=== PATIENT | female | born 1980 | race Caucasian/White ===

== ENCOUNTER 2019-10-12 01:58 | Emergency (ER) | payer OTHER ==
[~2019-10-12] VITALS: Ht 165.1 cm; Wt 101.6 kg
[~2019-10-12 01:58] MED LIST: AMOXICILLIN500 MG ORAL; VENTOLIN HFA18 GM INH
--- NOTE | 2019-10-12 02:10 | NUR ---
ED Nurse Note: Patient walked into ED c/o cough for the past 30 days, reports coming into the ED due to having an episode of non stop coughing for 1 hour. SpO2 at 98% RAMurtaza BECERRA, patient family at bedside. Will continue to monitor.
[2019-10-12 02:11] VITALS: BP 123/78
--- NOTE | 2019-10-12 02:24 | NUR ---
ED Nurse Note: ERMD at bedside. Family at bedside. Will continue to monitor.
--- NOTE | 2019-10-12 02:36 | Emergency Room Report ---
History of Present Illness General Chief Complaint: Upper Respiratory Illness Source: Patient, Family Member Present Illness HPI Patient 39-year-old female presents after continued nonproductive cough. Patient had recently finished courses of azithromycin as well as amoxicillin. She had multiple episodes of nonproductive coughing. She had recently been undergoing chemotherapy for stage II breast cancer. She reports having some subjective fever. She denies any increased productive cough. Prior history of allergy to Vicodin. Allergies: Coded Allergies: ACETAMINOPHEN (Verified Allergy, Unknown, 11/03/15) HYDROCODONE (Verified Allergy, Unknown, 11/03/15) Patient History Past Medical History: see triage record Last Menstrual Period: n/a Reviewed Nursing Documentation: PMH: Agreed; PSxH: Agreed Nursing Documentation-PMH Hx Asthma: Yes Hx Cancer: Yes - Breast Review of Systems All Other Systems: negative except mentioned in HPI Physical Exam Vital Signs Date Time Temp Pulse Resp B/P (MAP) Pulse Ox O2 Delivery O2 Flow Rate FiO2 10/12/19 02:03 98.4 90 18 123/78 (93) 96 Room Air 10/12/19 02:13 98 General Appearance: alert, GCS 15, obese, Chronically Ill Head: normocephalic, atraumatic ENT: hearing grossly normal, normal voice Neck: full range of motion, supple Respiratory: lungs clear, no respiratory distress, speaking full sentences Cardiovascular #1: normal peripheral pulses, regular rate, rhythm, no edema Gastrointestinal: normal inspection, non tender, soft Musculoskeletal: normal inspection, no calf tenderness Neurologic: alert, motor strength/tone normal, review engineer III-XII nml as tested, oriented x3, normal gait Psychiatric: mood/affect normal Skin: no rash Medical Decision Making Diagnostic Impression: Primary Impression: Respiratory infection, upper ER Course Patient presented for cough and difficulty with breathing. Differential diagnosis include recently to pneumonia, bronchitis, viral respiratory infection among others. Because of complexity of patient's imaging studies were ordered.Patient does not appear to be acutely ill. Patient was given a breathing treatment with marked improvement in cough. Patient had recently been treated with oral antibiotics. Patients cough appears to be viral in nature. Patient was advised to follow up with her oncologist in the next 1-2 days. She is to return if worse or if she developed any fever or other concerns. Last Vital Signs Date Time Temp Pulse Resp B/P (MAP) Pulse Ox O2 Delivery O2 Flow Rate FiO2 10/12/19 02:13 77 18 Room Air 98 10/12/19 02:11 98.4 123/78 96 Status: improved Disposition: HOME, SELF-CARE Condition: Stable Scripts Prednisone* (PREDNISONE*) 20 Mg Tablet 40 MG ORAL DAILY, #10 TAB Prov: Primitivo Gutner MD 10/12/19 Albuterol Sulfate* (ALBUTEROL SULFATE MDI*) 8.5 Gm Hfa.aer.ad 2 PUFF INH Q6H, #1 EA 0 Refills Prov: Primitivo Gunter MD 10/12/19 Primitivo Gunter MD Oct 12, 2019 02:36
[2019-10-12] MEDS ORDERED: Albuterol/Ipratropium 3ml neb HHN ONE (02:45)
--- NOTE | 2019-10-12 02:50 | NUR ---
Note chip in EDM - 10/12/19 at 0315 by [email or web address] ED Nurse Note: RT at bedside. Pt tolerating breathing treatment without any discomfort. NAD, will continue to monitor patient.
--- NOTE | 2019-10-12 02:59 | NUR ---
ED Nurse Note: XR at bedside.
--- NOTE | 2019-10-12 03:03 | NUR ---
ED Nurse Note: Called RT for breathing treatment.
--- NOTE | 2019-10-12 03:05 | NUR ---
ED Nurse Note: RT at bedside. Pt tolerating breathing treatment without any discomfort. NAD, will continue to monitor patient.
--- NOTE | 2019-10-12 03:25 | NUR ---
Note chip in EDM - 10/12/19 at 0335 by [email or web address] ED Nurse Note: Pt complaining of chest tightness. ERMD notified. Per ERMD, give another breathing treatment. RT at bedside.
[2019-10-12] MEDS ORDERED: PREDNISONE20 MG ORAL (03:33)
[2019-10-12] MEDS ORDERED: ALBUTEROL SULF8.5 GM INH (03:33)
--- NOTE | 2019-10-12 03:33 | NUR ---
Note chip in EDM - 10/12/19 at 0335 by [email or web address] ED Nurse Note: Pt tolerated breathing treatment well. Pt resting and calm. Will continue to monitor.
[2019-10-12 03:45] VITALS: BP 122/72
--- NOTE | 2019-10-12 03:45 | NUR ---
ER DISCHARGE NOTE: Patient is cleared to be discharged per ERMD, pt is aox4, on room air, with stable vital signs. pt was given dc and prescription instructions, pt was able to verbalize understanding, pt id band removed without complications. pt is able to ambulate with steady gait. pt took all belongings accompanied by family.
--- NOTE | 2019-10-12 11:00 | Diagnostic Imaging Report ---
Indication: Shortness of breath Technique: XRAY Chest 1v Comparison: None Findings: Limited exam. Heart size and mediastinal contours likely within normal limits for AP technique, low lung volumes and patient rotation. More reliable assessment of the heart and mediastinum can be made with dedicated PA and lateral views as clinically indicated. No definite focal airspace consolidation. No radiographically appreciable pleural effusion or pneumothorax. No evidence to suggest pulmonary edema. There are degenerative changes in the spine. No acute osseous abnormality is appreciated. Impression: Limited exam as above. No definite radiographic evidence of acute cardiopulmonary disease.
== END 2019-10-12 03:45 | disposition home or self-care (01) ==
LOC: EMR 02:30
DX: J06.9 Acute upper respiratory infection, unspecified (principal); E66.9 Obesity, unspecified; C50.919 Malignant neoplasm of unspecified site of unspecified female breast; Z88.6 Allergy status to analgesic agent
CPT/HCPCS: 71045; Z7502; 99284; J7620

== ENCOUNTER 2020-10-10 11:32 | Emergency (ER) | payer OTHER ==
[~2020-10-10] VITALS: Ht 162.6 cm; Wt 107.5 kg
[~2020-10-10 11:32] MED LIST changes: +ALBUTEROL SULF8.5 GM INH; +PREDNISONE20 MG ORAL
--- NOTE | 2020-10-10 11:45 | NUR ---
ED Nurse Note: Patient from home and walked in due to left hand pain and injury started this mornming. Grand daughter opened the door and accidentally slammed it on pt's hand. Pt is AOx4, calm and cooperative to care, VSS, on RA, afebrile on triage. Placed on chair.
[2020-10-10 12:00] VITALS: BP 116/74
--- NOTE | 2020-10-10 13:06 | Emergency Room Report ---
History of Present Illness General Chief Complaint: Upper Extremity Injury Source: Patient Present Illness HPI 40-year-old female presents to the emergency department complaining of localized 8 out of 10 severity left forearm pain x1 day status post getting her arm slammed in a door to the laundry room on accident. She reports swelling and bruising. She denies open wounds or bleeding. Patient is right-hand dominant. Denies numbness tingling or loss of sensation or gross motor movements of the extremities, incontinence of bowel or bladder. Denies CP, Palpitations, LOC, AMS, dizziness, Changes in Vision, weakness or a sudden severe headache. Allergies: Coded Allergies: ACETAMINOPHEN (Verified Allergy, Unknown, 11/03/15) HYDROCODONE (Verified Allergy, Unknown, 11/03/15) COVID-19 Screening Contact w/high risk pt: No Experienced COVID-19 symptoms?: No COVID-19 Testing performed PICTURE BOOKER: No Patient History Past Medical History: see triage record Past Surgical History: none Pertinent Family History: none Now: No Reviewed Nursing Documentation: PMH: Agreed; PSxH: Agreed Nursing Documentation-PMH Past Medical History: No History, Except For Hx Asthma: Yes Hx Cancer: Yes - right Breast Review of Systems All Other Systems: negative except mentioned in HPI Physical Exam Vital Signs Date Time Temp Pulse Resp B/P (MAP) Pulse Ox O2 Delivery O2 Flow Rate FiO2 10/10/20 11:39 98.4 78 16 116/74 (88) 94 Room Air Sp02 EP Interpretation: reviewed, normal General Appearance: no apparent distress, alert, GCS 15, non-toxic Head: normocephalic, atraumatic Eyes: bilateral eye normal inspection, bilateral eye PERRL ENT: hearing grossly normal, normal voice Neck: full range of motion Respiratory: lungs clear, normal breath sounds, speaking full sentences Cardiovascular #1: regular rate, rhythm, normal capillary refill Cardiovascular #2: 2+ radial (R), 2+ radial (L) Musculoskeletal: back normal, normal range of motion, gait/station normal, tender - LEft wrist / forearm , swelling - LEft wrist / forearm , other - No snuff box ttp Neurologic: alert, motor strength/tone normal, oriented x3, sensory intact, responsive, speech normal Psychiatric: judgement/insight normal Skin: Ecchymosis/Bruising - Left forearm - mild Medical Decision Making PA Attestation Dr. Livingston is my supervising Physician whom patient management has been discussed with. Diagnostic Impression: Primary Impression: Contusion of left wrist Qualified Codes: S60.212A - Contusion of left wrist, initial encounter Additional Impression: Contusion of forearm, left Qualified Codes: S50.12XA - Contusion of left forearm, initial encounter ER Course 40-year-old female presents to the emergency department complaining of localized 8 out of 10 severity left forearm pain x1 day status post getting her arm slammed in a door to the laundry room on accident. She reports swelling and bruising. She denies open wounds or bleeding. Patient is right-hand dominant. Denies numbness tingling or loss of sensation or gross motor movements of the extremities, incontinence of bowel or bladder. Denies CP, Palpitations, LOC, AMS, dizziness, Changes in Vision, weakness or a sudden severe headache. Ddx considered but are not limited to Fracture, dislocation, contusion, Sprain/Strain/Spasm, Epidural abscess, Neoplastic mets. Vital signs: are WNL, pt. is afebrile H&PE are most consistent with musculoskeletal injury will perform imaging to r/o fractures/dislocations. ORDERS: - X-ray Left hand and wrist 3 views each - negative for fx, Dislocation, or s ignificant soft tissue injury, per preliminary read in ED, and signed by PARTH Oleary, my supervising physician has reviewed, and agrees with my interpretation. ED INTERVENTIONS: - Motrin 600mg PO -Wrist splint applied by RN. Pt. remains neurovascularly intact. - Left arm Sling applied by RN. Pt. remains neurovascularly intact. DISCHARGE: At this time pt. is stable for d/c to home. Will provide printed patient care instructions, and any necessary prescriptions. Care plan and follow up instructions have been discussed with the patient prior to discharge. Last Vital Signs Date Time Temp Pulse Resp B/P (MAP) Pulse Ox O2 Delivery O2 Flow Rate FiO2 10/10/20 11:39 98.4 78 16 116/74 (88) 94 Room Air Status: improved Disposition: HOME, SELF-CARE Condition: Stable Referrals: [facility],REFERRING (PCP) Beau Castaneda [facility]. [facility] Patient Instructions: Contusion, [id number] Additional Instructions: Take medications as directed. Follow up with a Primary Care Provider in 3-5 days, even if your symptoms have resolved. --Please review list of primary care clinics, if you do not already have a primary care provider Return sooner to ED if new symptoms occur, or current symptoms become worse. - Please note that this Emergency Department Report was dictated using [employer] presser technology software, occasionally this can lead to erroneous entry secondary to interpretation by the dictation equipment. Connie Oleary Oct 10, 2020 13:06
[2020-10-10] MEDS ORDERED: IBUPROFEN600 M1 ORAL (13:07)
[2020-10-10 13:26] VITALS: BP 118/76
--- NOTE | 2020-10-10 13:26 | NUR ---
ER DISCHARGE NOTE: Patient is cleared to be discharged per ERMD, pt is aox4, on room air, with stable vital signs. pt was given dc and prescription instructions, pt was able to verbalize understanding, pt id band removed. pt is able to ambulate with steady gait. pt took all belongings.
--- NOTE | 2020-10-10 14:37 | Diagnostic Imaging Report ---
INDICATION: Hand and wrist pain TECHNIQUE: Frontal, lateral, and oblique views of the left hand and wrist COMPARISON: None FINDINGS: No acute fracture or dislocation. Joint spaces are maintained. There is moderate soft tissue swelling overlying the ulnar and dorsal aspect of the forearm. IMPRESSION: No acute fracture or dislocation.
== END 2020-10-10 13:26 | disposition home or self-care (01) ==
LOC: EMR 13:00
DX: S60.212A Contusion of left wrist, initial encounter (principal); S50.12XA Contusion of left forearm, initial encounter; J45.909 Unspecified asthma, uncomplicated; Z85.3 Personal history of malignant neoplasm of breast; Z88.6 Allergy status to analgesic agent; Z88.5 Allergy status to narcotic agent
CPT/HCPCS: 73110; 73130; Z7502; 99284